=== PATIENT | male | born 1940 | race Caucasian/White ===

== ENCOUNTER → 2018-12-18 12:40 | Outpatient (CLI) | payer MEDICARE, SELFPAY ==
--- NOTE | 2018-12-18 12:45 | FL_ITS ---
FL barium swallow modified: 12/18/2018 12:45 PM CLINICAL HISTORY: Dysphagia ORDERING PHYSICIAN: Hal Hayward MD PATIENT AGE: 78 years Comparison: None TECHNIQUE: Patient administered varying consistencies of barium contrast, while viewed in lateral position under real-time fluoroscopy with cine recording. FLUOROSCOPY TIME: 4 minutes The study was performed in conjunction with speech pathologist. Please see that report & recommendations. FINDINGS: Patient was given varying consistencies of barium. There is delay in initiation of swallow the mouth amount of residue. The patient is kyphotic. There is aspiration of residue within the piriform sinuses IMPRESSION: Delayed swallowing with moderate amount of residue with aspiration of residue Please see speech pathologist report and recommendations.
--- NOTE | 2018-12-18 14:17 | HMH.SLMBS2 ---
Speech & Language Evaluation Speech/Language Mod Barium Swallow Start: 12/18/18 13:59 Freq: once Status: Complete Protocol: Document 12/18/18 13:59 LISA (Rec: 12/18/18 14:17 LISA [id number]) MBS Recommendations Diet Dietary Recommendations NPO Comment Continue with g-tube feedings Mod Barium Swallow Impressions Summary and Impressions Oral Phase Impression Severe Impairment Oral Phase Summary Mr. Browning exhibited decreased bolus formation with pureed and pudding and decreased oral transit time with all consistencies. Pharyngeal Phase Impression Severe Impairment Pharyngeal Phase Summary Mr. Browning exhibited delay in initiation of swallow >5 seconds with all consistencies, penetration into laryngeal vestibule resulting in silent aspiration during the swallow, and pharyngeal residue resulting of silent aspiration of all consistencies. Speech/Language MBS Assessment/Goals/Plan Assessment Date of Evaluation: 12/18/18 Evaluation Type Initial Certification Assessment/Problems Dysphagia Does Patient Qualify for Service No Qualify/Failure Comment Evaluation results determine Mr. Browning silent aspirates all consistencies and should remain on current diet of alternate feeding method. He will follow up with [facility] at [facility]. Plan Pt/Guardian verbally ack understanding Yes of dx/prognosis/goals G -code Required Yes G-CODES ST Current Status [id number] ST Current Status Modifier CN-At least 100% impaired, limited or restricted ST Goal Status [id number] ST Goal Status Modifier CN-At least 100% impaired, limited or restricted Mod Barium Swallow Setup Exam Setup Radiologist Prabhu Castanon Level of Consciousness Awake,Alert,Follows Commands Position (degrees) 90 Mod Barium Swallow-Lat View Textures Lateral View Food Presentation Thin Liquid via Spoon,Thin Liquid via Cup,Thin Liquid via Straw,[place] Liquid via Spoon ,[place] Liquid via Cup,Honey Liquid via Spoon,Honey Liquid
== END ==
PROVIDERS: PCP Internal Medicine Adolescent Medicine; Visit Provider Internal Medicine Adolescent Medicine
DX: R13.10 Dysphagia, unspecified (principal); I69.30 Unspecified sequelae of cerebral infarction
CPT/HCPCS: 70371; 92611

== ENCOUNTER → 2019-04-27 13:43 | Outpatient (CLI) | payer MEDICARE, SELFPAY ==
[2019-04-27 14:50] LABS: Anion Gap 13.6 mEq/L (5-15); Blood Urea Nitrogen 27 mg/dL (7-18); Calcium 8.7 mg/dL (8.5-10.1); Carbon Dioxide 29 mmol/L (21.0-32.0); Chloride 114 mmol/L (98-107); Creatinine,Serum 1.03 mg/dL (0.70-1.30); Estimated Glomerular Filt Rate 70 ml/min (>60); GFR (African American) 84 ML/MIN (>60); Glucose 99 mg/dL (74-106); Potassium 3.6 mmoL/L (3.5-5.1)
[2019-04-27 15:06] LABS: Sodium 153 mmol/L (136-145)
== END ==
PROVIDERS: Visit Provider Internal Medicine Adolescent Medicine
DX: E87.0 Hyperosmolality and hypernatremia (principal)
CPT/HCPCS: 80048

== ENCOUNTER → 2019-05-04 10:44 | Outpatient (CLI) | payer MEDICARE, SELFPAY ==
[2019-05-04 12:20] LABS: Anion Gap 11.9 mEq/L (5-15); Blood Urea Nitrogen 28 mg/dL (7-18); Calcium 8.8 mg/dL (8.5-10.1); Carbon Dioxide 31 mmol/L (21.0-32.0); Chloride 113 mmol/L (98-107); Creatinine,Serum 1.12 mg/dL (0.70-1.30); Estimated Glomerular Filt Rate 63 ml/min (>60); GFR (African American) 77 ML/MIN (>60); Glucose 93 mg/dL (74-106)
[2019-05-04 13:02] LABS: Potassium 2.9 mmoL/L (3.5-5.1); Sodium 153 mmol/L (136-145)
== END ==
PROVIDERS: Visit Provider Internal Medicine Adolescent Medicine
DX: I69.351 Hemiplegia and hemiparesis following cerebral infarction affecting right dominant side (principal); E78.5 Hyperlipidemia, unspecified; I48.91 Unspecified atrial fibrillation; R56.9 Unspecified convulsions
CPT/HCPCS: 80048